=== PATIENT | female | born 1960 | race Caucasian/White ===

== ENCOUNTER 2019-06-08 08:04 | Inpatient (IN) | payer MEDICAID ==
[2019-06-08] VITALS (13 sets, daily range): BP systolic 91–181; BP diastolic 51–98
[~2019-06-08] VITALS: Ht 152.4 cm; Wt 57.8 kg
[2019-06-08] MEDS ORDERED: ONDANSETRON HCL 4MG/2ML INJ IV STA (08:30)
[2019-06-08] MEDS ORDERED: MORPHINE SULFATE 4 MG/ML CPJ (NOT FOR IM USE) IV STA (08:30)
[2019-06-08] MEDS ORDERED: LABETALOL 5MG/ML SYR 20 MG/4 ML SYRINGE IV ONE (08:30)
[2019-06-08] MEDS ORDERED: ASPIRIN 81MG TABLET PO ONE (08:30)
[2019-06-08] MEDS ORDERED: NITROGLYCERIN OINT 1GM/INCH UDPKT TD ONE (08:30)
[2019-06-08 08:58] LABS: HEMATOCRIT. 38.1 % (36.0-48.0); HEMOGLOBIN. 12.9 g/dL (12.0-16.0); MEAN CORPUSCULAR HEMOGLOBIN 32.6 pg (28.0-32.0); PLATELET 273 x1000/uL (130-400); RED BLOOD CELL COUNT 3.97 mill/uL (4.2-5.4); RED CELL DISTRIBUTION WIDTH 13.6 % (11.6-14.6)
[2019-06-08 09:02] LABS: CHLORIDE 103 mEq/L (98-107)
[2019-06-08 09:27] LABS: PLATELET ESTIMATE NORMAL
[2019-06-08] MEDS ORDERED: KETOROLAC 15MG/ML VIAL IV PRN (11:15)
[2019-06-08] MEDS ORDERED: ACETAMINOPHEN 325MG TABLET PO PRN (11:15)
[2019-06-08] MEDS ORDERED: LORAZEPAM 0.5MG TABLET PO PRN (11:15)
[2019-06-08] MEDS ORDERED: NA PHOS,M-B/NA PHOS,DI-BA ENEMA 118ML PR PRN (11:15)
[2019-06-08] MEDS ORDERED: ONDANSETRON HCL 4MG/2ML INJ IV PRN (11:15)
[2019-06-08] MEDS ORDERED: CLONIDINE 0.1MG TABLET PO PRN (11:15)
[2019-06-08] MEDS ORDERED: IPRATROPIUM/ALBUTEROL 0.5-3(2.5)MG/3ML NEB NEB PRN (11:15)
[2019-06-08] MEDS ORDERED: GUAIFENESIN 200MG/10ML SUGAR FREE UDC PO PRN (11:15)
[2019-06-08] MEDS ORDERED: MAGNESIUM/ALUMINUM HYDROXIDE/SIMETHICONE 30ML UDC PO PRN (11:15)
[2019-06-08] MEDS ORDERED: NITROGLYCERIN 0.4MG TABLET SL SL PRN (11:15)
[2019-06-08] MEDS ORDERED: DOCUSATE SODIUM 100MG CAPSULE PO PRN (11:15)
[2019-06-08 11:37] LABS: ETHANOL BLOOD < 10 mg/dL
[2019-06-08 11:40] LABS: LDL CHOLESTEROL 285 mg/dL (5-100)
[2019-06-08 11:42] LABS: HDL CHOLESTEROL 63 mg/dL (40-59)
[2019-06-08] MEDS: ENOXAPARIN 40MG/0.4ML SYR SUBCUT SCH (12:25)
[2019-06-08] MEDS: AMLODIPINE 10MG TABLET PO SCH (12:25)
[2019-06-08] MEDS ORDERED: PNEUMOCOCCAL 23-VAL P-SAC VAC 0.5 ML IM ONE (13:15)
[2019-06-08] MEDS ORDERED: INFLUENZA VIRUS VACCINE(AFLURIA) 0.5ML SYR IM ONE (13:15)
[2019-06-08 14:55] LABS: CREATINE KINASE 68 IU/L (26-192)
[2019-06-08 14:56] LABS: CREATINE KINASE MB FRACTION 1.1 ng/mL (0.5-3.6)
[2019-06-08] MEDS: FAMOTIDINE 20MG TABLET PO SCH (20:50)
[2019-06-08] MEDS ORDERED: ATORVASTATIN CALCIUM 40MG TABLET PO SCH (21:00)
[2019-06-08] MEDS ORDERED: ZOLPIDEM TARTRATE 5MG TABLET PO PRN (21:00)
[2019-06-08] MEDS: LISINOPRIL 20MG TABLET PO SCH (22:08)
[2019-06-09] VITALS (8 sets, daily range): BP systolic 97–137; BP diastolic 49–77
[2019-06-09 01:13] LABS: CREATINE KINASE 60 IU/L (26-192)
[2019-06-09 01:14] LABS: CREATINE KINASE MB FRACTION < 1.0 ng/mL (0.5-3.6)
[2019-06-09 06:21] LABS: *AMPHETAMINES SCREEN URINE NEGATIVE (NEGATIVE); *BARBITURATES SCREEN URINE NEGATIVE (NEGATIVE); *BENZODIAZEPINES SCREEN URINE NEGATIVE (NEGATIVE); *COCAINE SCREEN URINE NEGATIVE (NEGATIVE); METHADONE URINE SCREEN NEGATIVE (NEGATIVE); OPIATES URINE SCREEN PRESUMTIVE POSITIVE (NEGATIVE)
[2019-06-09 06:22] LABS: CANNABINOID URINE SCREEN NEGATIVE (NEGATIVE); PHENCYCLIDINE URINE SCREEN NEGATIVE (NEGATIVE)
[2019-06-09] MEDS: FAMOTIDINE 20MG TABLET PO SCH (08:25)
[2019-06-09] MEDS: AMLODIPINE 10MG TABLET PO SCH (08:25)
[2019-06-09] MEDS: LISINOPRIL 20MG TABLET PO SCH (08:31)
[2019-06-09] MEDS ORDERED: ASPIRIN 325MG EC TABLET PO SCH (09:00)
[2019-06-09] MEDS: ENOXAPARIN 40MG/0.4ML SYR SUBCUT SCH (11:13)
== END 2019-06-09 13:30 | disposition home or self-care (01) | DRG 203 ==
LOC: ER 08:04 → 3WST 10:09 → EDBEDREQ 10:12 → EDBEDREQTM 10:12 → ENRESERV 10:58
PROVIDERS: ADMIT Internal Medicine; ATTEND Internal Medicine
DX: R07.89 Other chest pain (principal); E78.00 Pure hypercholesterolemia, unspecified; I10 Essential (primary) hypertension; Z91.14 Patient's other noncompliance with medication regimen; Z82.49 Family history of ischemic heart disease and other diseases of the circulatory system; Z82.3 Family history of stroke
CPT/HCPCS: 36415; 71045; 80061; 80305; 80320; 82550; 82553; 83036; 83880; 84484; 90686; 90732; 93005; 93970; 96374; 96375; 99291; J1650; J2270; J2405; J3490; G0480